=== PATIENT | male | born 1990 | race African-American/Black ===

== ENCOUNTER 2017-11-16 08:03 | Inpatient (IN) | payer BC, OTHER ==
[~2017-11-16] VITALS: Ht 170.2 cm; Wt 83.9 kg
[2017-11-16 08:03] VITALS: BP 125/75
[~2017-11-16 08:03] MED LIST: BACTRIM DS TAB1 EACH PO; LANTUS100 UNIT/M SUBQ; NORCO 5-325 TA1 EACH PO; NOVOLOG100 UNIT/1 SUBQ; NYAMYC15 GM TOP
[2017-11-16] MEDS ORDERED: COZAAR 25 MG TA25 MG PO (08:06)
[2017-11-16 08:32] LABS: HEMATOCRIT 45.2 % (42.0-52.0); HEMOGLOBIN 15.4 gm/dL (14.0-18.0); MCH 28.4 pg (26.0-34.0); MCV 83.5 fL (80.0-100.0); PLATELET COUNT 249 thou/uL (150-400); RBC 5.42 mil/uL (4.50-6.00); RDW 14.1 % (10.5-14.5); WBC 9.2 thou/uL (4.0-11.0)
[2017-11-16] MEDS ORDERED: LINZESS145 MCG PO (08:43)
[2017-11-16 09:00] LABS: BE(vivo) -3.4 mmol/L (-2 to +3); PCO2 VENOUS 24.6 mmHg (41.0-51.0); PO2 VENOUS 174.7 mmHg (35.0-45.0)
[2017-11-16 09:07] LABS: URINE BILIRUBIN NEGATIVE (Negative); URINE BLOOD 1+ (Negative); URINE CLARITY CLEAR; URINE COLOR YELLOW; URINE GLUCOSE-RANDOM* 3+ (Negative); URINE KETONES 1+ (Negative); URINE LEUKOCYTES-REFLEX NEGATIVE (Negative); URINE NITRITE-REFLEX NEGATIVE (Negative); URINE PROTEIN (DIPSTICK) 1+ (Negative); URINE UROBILINOGEN 0.2 E.U./dl (0.2-1.0)
[2017-11-16 09:18] LABS: CASTS None Seen /LPF (None Seen); CRYSTALS None Seen /LPF (None Seen); SQUAMOUS 0-3 Few /LPF (0-3); URINE WBC-REFLEX >25 Many /HPF (0-5)
[2017-11-16 09:19] LABS: URINE RBC 3-10 Few /HPF (0-2)
[2017-11-16 09:24] LABS: ABSOLUTE NEUTROPHILS 7.3 thou/uL (1.4-8.2)
[2017-11-16 09:25] LABS: ANISOCYTOSIS SLIGHT
[2017-11-16 09:43] LABS: CREATININE 2.1 mg/dL (0.7-1.3); POTASSIUM 3.9 mmol/L (3.5-5.1)
[2017-11-16 09:49] LABS: ALBUMIN 3.7 g/dL (3.4-5.0); TOTAL BILIRUBIN 0.3 mg/dL (<0.1-1.0); TOTAL PROTEIN 8.6 g/dL (6.4-8.2)
[2017-11-16 10:17] LABS: MAGNESIUM 2.5 mg/dL (1.8-2.4); PHOSPHORUS 2.2 mg/dL (2.5-4.9)
[2017-11-16 16:20] VITALS: BP 122/70
[2017-11-16 20:00] VITALS: BP 137/75
[2017-11-17 03:39] VITALS: BP 130/76
[2017-11-17 05:52] LABS: HEMATOCRIT 40.7 % (42.0-52.0); MCHC 32.3 g/dL (28.0-37.0); MCV 86.7 fL (80.0-100.0); PLATELET COUNT 205 thou/uL (150-400); RDW 14.5 % (10.5-14.5)
[2017-11-17 06:01] LABS: HEMOGLOBIN 13.2 gm/dL (14.0-18.0)
[2017-11-17 06:16] LABS: CREATININE 1.7 mg/dL (0.7-1.3)
[2017-11-17 06:32] LABS: POTASSIUM 5.2 mmol/L (3.5-5.1)
[2017-11-17 09:31] VITALS: BP 133/69
[2017-11-17 09:42] LABS: ABSOLUTE NEUTROPHILS 5.3 thou/uL (1.4-8.2)
[2017-11-17 09:43] LABS: ANISOCYTOSIS SLIGHT
[2017-11-17 20:45] VITALS: BP 136/52
[2017-11-18 03:41] LABS: HEMATOCRIT 38.1 % (42.0-52.0); HEMOGLOBIN 12.8 gm/dL (14.0-18.0); MCH 28.4 pg (26.0-34.0); MCHC 33.6 g/dL (28.0-37.0); MCV 84.7 fL (80.0-100.0); PLATELET COUNT 199 thou/uL (150-400); RBC 4.49 mil/uL (4.50-6.00); RDW 13.9 % (10.5-14.5); WBC 4.1 thou/uL (4.0-11.0)
[2017-11-18 04:17] LABS: CREATININE 1.4 mg/dL (0.7-1.3)
[2017-11-18 04:20] VITALS: BP 126/60
[2017-11-18 04:20] LABS: POTASSIUM 3.6 mmol/L (3.5-5.1)
[2017-11-18 04:54] LABS: ABSOLUTE NEUTROPHILS 1.8 thou/uL (1.4-8.2); ATYPICAL LYMPHS 1 %
[2017-11-18] MEDS ORDERED: OSELB75 PO (08:24)
[2017-11-18] MEDS ORDERED: KEFLEX500 M1 PO (08:25)
[2017-11-18 09:17] VITALS: BP 131/85
[2017-11-18 14:56] VITALS: BP 131/85
== END 2017-11-18 15:40 | disposition home or self-care (01) | DRG 683 ==
LOC: ER 08:03 → 4N 09:58 → EROBS 09:58 → 4N 14:09
PROVIDERS: Emergency Medicine; Family Medicine
DX: N17.9 Acute kidney failure, unspecified (principal); N39.0 Urinary tract infection, site not specified; E10.9 Type 1 diabetes mellitus without complications; J11.1 Influenza due to unidentified influenza virus with other respiratory manifestations; E86.0 Dehydration; Z79.4 Long term (current) use of insulin; Z90.5 Acquired absence of kidney; Z79.899 Other long term (current) drug therapy
CPT/HCPCS: 10790

== ENCOUNTER 2018-09-11 11:09 | Emergency (ER) | payer BC, OTHER ==
[~2018-09-11] VITALS: Ht 170.2 cm; Wt 81.7 kg
[~2018-09-11 11:09] MED LIST changes: +COZAAR 25 MG TA25 MG PO; +KEFLEX500 M1 PO; +LINZESS145 MCG PO; +OSELB75 PO
== END 2018-09-11 12:11 | disposition home or self-care (01) ==
LOC: ER 11:09
DX: K59.00 Constipation, unspecified (principal); E10.9 Type 1 diabetes mellitus without complications; Z90.5 Acquired absence of kidney

== ENCOUNTER → 2019-09-26 | Outpatient (CLI) | payer BC, OTHER | LOC: RAD 12:44 | DX: R05 Cough (principal) ==

== ENCOUNTER → 2020-06-05 | Outpatient (CLI) | payer OTHER | LOC: LAB 12:26 | PROVIDERS: ATTEND Nurse Practitioner | DX: U07.1 COVID-19 (principal) ==